=== PATIENT | female | born 1970 | race Hispanic/Latino ===

== ENCOUNTER 2017-12-21 13:01 | Emergency (ER) | payer BC ==
[2017-12-21 13:06] VITALS: BMI 25.7
[2017-12-21 13:07] VITALS: TEMP 98.1; O2SAT 96
[2017-12-21 13:11] VITALS: RESP 16
--- NOTE | 2017-12-21 13:54 | ED PDOC ---
Lower Extremity Pain/Injury Time Seen by Provider: 12/21/17 13:11 Chief Complaint (Nursing): Lower Extremity Problem/Injury Chief Complaint (Provider): Right Leg Pain History Per: Patient History/Exam Limitations: no limitations Onset/Duration Of Symptoms: Days Current Symptoms Are (Timing): Still Present (x3) Severity: None Additional Complaint(s): 47 year old female presents to the emergency department complaining of right leg pain which began on Friday evening. Patient states that she was helping a friend put together a scooter and when she got up she felt a sharp pain going down her right leg. She reports that she was seen at an urgent care where she was given naproxen and flexeril but states that the pain still persists. Denies back pain. - Risk Factors DVT Risk Factors: Pos: None Past Medical History Reviewed: Historical Data, Nursing Documentation, Vital Signs Vital Signs: Last Vital Signs Temp 98.1 F 12/21/17 13:07 Pulse 114 H 12/21/17 13:07 Resp 16 12/21/17 13:07 BP 183/101 H 12/21/17 13:07 Pulse Ox 96 12/21/17 13:07 - Medical History PMH: No Chronic Diseases - Surgical History Surgical History: Back Surgery, Cholecystectomy, (x2) - Family History Family History: States: Unknown Family Hx - Living Arrangements Living Arrangements: With Family - Social History Current smoker - smoking cessation education provided: No Ex-Smoker (has not smoked in the last 12 months): No Alcohol: None Drugs: Denies - Home Medications Home Medications: Ambulatory Orders Medication Instructions Recorded Nabumetone [Relafen] 500 mg PO BID #20 tab 12/21/17 Prednisone 50 mg PO DAILY #5 tablet 12/21/17 diaZEpam [Valium] 5 mg PO Q8 PRN #12 tab 12/21/17 - Allergies Allergies/Adverse Reactions: Allergies Allergy/AdvReac Type Severity Reaction Status Date / Time No Known Allergies Allergy Verified 12/21/17 13:07 Review of Systems ROS Statement: Except As Marked, All Systems Reviewed And Found Negative Musculoskeletal: Positive for: Leg Pain (right) Physical Exam - Reviewed Nursing Documentation Reviewed: Yes Vital Signs Reviewed: Yes - Physical Exam Appears: Positive for: Non-toxic, No Acute Distress Skin: Positive for: Normal Color, Warm, Dry. Negative for: Rash Eye Exam: Positive for: Normal appearance Cardiovascular/Chest: Positive for: Regular Rate, Rhythm, Chest Non Tender. Negative for: Tachycardia Respiratory: Positive for: Normal Breath Sounds. Negative for: Wheezing, Respiratory Distress Back: Positive for: Other (mild tenderness across lower lumbar region. Patient is able to heel and toe walk.). Negative for: L CVA Tenderness, R CVA Tenderness Extremity: Positive for: Normal ROM. Negative for: Tenderness, Calf Tenderness , Deformity, Swelling Neurologic/Psych: Positive for: Alert, Oriented, Gait - ECG O2 Sat by Pulse Oximetry: 96 (RA) Pulse Ox Interpretation: Normal Medical Decision Making Medical Decision Makin Initial Impression 47 year old female presenting with back pain with sciatica (has history of flare ups in the past) Initial Plan: * Toradol 600mg PO * Tylenol 975 mg PO * Valium 5 mg PO Patient reports some improvement to pain s/p meds given. Rx given for valium, relafen and prednisone. Advised rest, heavy lifting and follow up with orthopedist, referral provided. Repeat VS prior to d/c improved, HR 92, BP 148/84. Documented by Petra Cuellar acting as a scribe for Joana Metcalf PA-C. All medical record entries made by the Scribe were at my direction and personally dictated by me. I have reviewed the chart and agree that the record accurately reflects my personal performance of the history, physical exam, medical decision making, and the department course for this patient. I have also personally directed, reviewed, and agree with the discharge instructions and disposition. Disposition - Clinical Impression Clinical Impression: Back pain with sciatica - Patient ED Disposition Is Patient to be Admitted: No Counseled Patient/Family Regarding: Diagnosis, Need For Followup, Rx Given - Disposition Referrals: Hira Andersen III, MD [Staff Provider] - Disposition: Routine/Home Disposition Time: 14:33 Condition: STABLE Additional Instructions: Take prescription meds as directed. Rest and avoid heavy lifting. Follow-up with orthopedist or primary doctor for further evaluation. Prescriptions: diaZEpam [Valium] 5 mg PO Q8 PRN #12 tab PRN Reason: Muscle Pain Nabumetone [Relafen] 500 mg PO BID #20 tab Prednisone 50 mg PO DAILY #5 tablet Instructions: Low Back Pain (DC), Sciatica (DC), Back Exercises, Sciatica Exercises Forms: [facility] (Amharic)
[2017-12-21 14:51] VITALS: BP 148/84; PULSE 92
== END 2017-12-21 14:51 | disposition home or self-care (01) ==
LOC: H.ER 13:01
DX: M54.31 Sciatica, right side (principal)
CPT/HCPCS: 81025; 96372; 99283; J1885